=== PATIENT | male | born 1955 | race Caucasian/White ===

== ENCOUNTER → 2018-05-03 | Outpatient (CLI) | payer OTHER ==
--- NOTE | 2018-05-03 16:05 | CT ---
EXAMINATION TYPE: CT angio abdomen pelvis DATE OF EXAM: 05/03/2018 COMPARISON: NONE HISTORY: 62-year-old male AAA TECHNIQUE: Contiguous axial scanning of the abdomen and pelvis before and after administration of 100 ml Isovue-370 IV contrast. Coronal/sagittal MIP reconstructions performed. 3-D reconstructions gener ated on a dedicated independent workstation. CT DLP: 1988 mGycm Automated exposure control for dose reduction was used. FINDINGS: Heart is normal size without pericardial effusion. Coronary vessel calcifications are present and unr emarkable for coronary artery disease. Possible partially visualized distal LAD aneurysm, refer to se carr 5 image 1 measuring up to 1.2 cm. [place] areas of atelectasis in the lung bases without pleural effusion. Arterial phase imaging of the liver shows a blush of enhancement in segment 6 inferior right liver lo be probably an area of vascular shunting or flash filling hemangioma. Cholecystectomy clips. Right adrenal gland, kidneys, spleen with small hilar splenule, and pancreas show no gross abnormalit y. There is a low-density 1.2 cm left adrenal adenoma. No dilated small bowel, free fluid, or free air. No lymphadenopathy seen. Normal appendix. Scattered mild stool. No pericolonic inflammatory change. Bladder is urine distended. Pelvic phleboliths. Prostate gland measures 4.0 cm wide. No abnormal flui d collection in the pelvis or pelvic lymphadenopathy. Vasculature: Endovascular aortobiiliac stent graft repair is demonstrated which extends from just below the renal artery takeoff and below the left renal vein. The [place] measures up to 6.5 cm spanning 11.4 cm to the bifurcation. There is some acute intramu ral hematoma within the posterior aspect of the [place] measuring 3.8 x 2.8 cm and 5.1 cm cranioca udal which shows increasing density after contrast administration compatible with endoleak. A clear s ource for the endoleak is not identified. 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 Bones: No osseous destructive process. IMPRESSION: 1. ENDOVASCULAR AORTOBIILIAC STENT GRAFT REPAIR EXTENDING FROM JUST BELOW THE RENAL ARTERIES. 2. THE [place] SAC MEASURES 6.5 CM AND THE EXAM IS POSITIVE FOR ENDOLEAK WITH AN AREA OF ACUTE INTRALU ASHER HEMATOMA THAT INCREASES DENSITY AFTER CONTRAST MEASURING 3.8 X 5.1 CM IN THE POSTERIOR ASPECT O F THE [place] SAC. CORRELATE WITH PREVIOUS [place] SAC SIZE ON ANY OUTSIDE PRIORS. 3. 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 4. POSSIBLE PARTIALLY VISUALIZED 1.2 CM DISTAL LAD ANEURYSM.
== END | disposition home or self-care (01) ==
LOC: RADCTMAIN 13:28
PROVIDERS: ATTEND Physician Assistant
DX: I72.3 Aneurysm of iliac artery (principal); I97.638 Postprocedural hematoma of a circulatory system organ or structure following other circulatory system procedure
CPT/HCPCS: 74174; Q9967

== ENCOUNTER → 2018-11-29 | Outpatient (CLI) | payer OTHER ==
--- NOTE | 2018-11-29 15:02 | CT ---
EXAMINATION TYPE: CT angio abdomen pelvis DATE OF EXAM: 11/29/2018 COMPARISON: Prior CTA May 03, 2018 HISTORY: History of AAA with stent graft, evaluate for endoleak. CT DLP: 1965.3 mGycm, Automated Exposure Control for Dose Reduction was Utilized. CONTRAST: CTA scan of the abdomen and pelvis is performed without oral and without and with IV Contrast, patien t injected with 100 mL of Isovue 370. Endoleak protocol with Three-D reconstructed images created on independent workstation and reviewed FINDINGS: VASCULAR: There is redemonstration of aortobiiliac stent graft through infrarenal abdominal aortic an eurysm measuring up to 5.9 x 6.1 cm transversely axial image 44. There is patency of the celiac arter y, SMA, bilateral single renal arteries above stent graft. Post contrast images show successful opaci fication of stent graft without suspicious extraluminal opacification to suggest persistent endoleak. 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 There are patent internal/external iliac arteries extending into common as well as s uperficial and deep femoral arteries in the bilateral groin without new significant plaque or aneurys m. IVON is visualized and presumed occluded. There are new coils posterior to the aneurysm along the l eft iliopsoas muscle axial image 47 likely from occlusion of lumbar or renal feeding artery. LUNG BASES: No significant abnormality is appreciated. LIVER/GB: Cholecystectomy clips are redemonstrated. PANCREAS: No significant abnormality is seen. SPLEEN: No significant abnormality is seen. ADRENALS: Stable low dense left adrenal mass measuring 1.4 x 1.1 cm axial image 21 series 7 favoring benign lipid rich adenoma. KIDNEYS: No significant abnormality is seen. BOWEL: A few distal diverticula in the colon are redemonstrated. PROSTATE/SEMINAL VESICLES: A few scattered pelvic phleboliths are seen. LYMPH NODES: No greater than 1cm abdominal or pelvic lymph nodes are appreciated. OSSEOUS STRUCTURES: There is mild to moderate multilevel spurring in the thoracolumbar spine. OTHER: No significant additional abnormality is seen. 1. Interval successful suspected endovascular coil embolization of feeding artery posterior to endole ak. No endoleak identified currently. Patent aortobiiliac stent graft redemonstrated. [place] abdomina l aortic aneurysm measures up to 6.1 cm on current study felt slightly improved from prior study afte r treatment of endoleak. Stable 2.1 cm aneurysm distal right common iliac artery.
== END ==
LOC: RADCTMAIN 13:51
PROVIDERS: ATTEND Surgery
DX: I71.4 Abdominal aortic aneurysm, without rupture (principal); I72.8 Aneurysm of other specified arteries; T82.898A Other specified complication of vascular prosthetic devices, implants and grafts, initial encounter; Z95.828 Presence of other vascular implants and grafts
CPT/HCPCS: 74174; Q9967

== ENCOUNTER 2018-12-15 10:51 | Observation (INO) | payer OTHER ==
[2018-12-15] MEDS ORDERED: FAMOTIDINE 20 MG/2 ML VIAL IV STA (11:15)
--- NOTE | 2018-12-15 11:20 | ED ---
GI Bleed HPI - General Chief complaint: GI Bleed Stated complaint: poss GI bleed Time Seen by Provider: 12/15/18 11:06 Source: patient, RN notes reviewed Mode of arrival: ambulatory Limitations: no limitations - History of Present Illness Initial comments: This is a 63-year-old male with a history of abdominal aortic aneurysm with stent placement who is on Coumadin who states he had the onset last night of dark red blood per rectum he had another episode this morning. He states he's had some slight nausea no shortness breath chest pain no abdominal pain. No hematuria, no chest pain no cough or phlegm production no emesis. He states his normal Coumadin check his once a month usually ranges and INR from 2.1-2.9. Last check was about 3 weeks ago. No other modifying factors this time he denies any lightheadedness or dizziness MD complaint: gross hematochezia - Related Data Home Medications Medication Instructions Recorded Confirmed Aspirin 81 mg PO DAILY 12/05/15 12/15/18 Lisinopril [Zestril] 5 mg PO BID 12/05/15 12/15/18 Metoprolol Tartrate [Lopressor] 25 mg PO BID 12/05/15 12/15/18 Warfarin Sodium [Coumadin] 5 mg PO SUTUTHSA 12/15/18 12/15/18 Warfarin [Coumadin] 2.5 mg PO MOWEFR 12/15/18 12/15/18 Allergies Allergy/AdvReac Type Severity Reaction Status Date / Time No Known Allergies Allergy Verified 12/15/18 11:26 Review of Systems ROS Statement: Those systems with pertinent positive or pertinent negative responses have been documented in the HPI. ROS Other: All systems not noted in ROS Statement are negative. Past Medical History Past Medical History: Coronary Artery Disease (CAD), Hypertension Additional Past Medical History / Comment(s): aaa History of Any Multi-Drug Resistant Organisms: None Reported Past Surgical History: Cholecystectomy, Heart Catheterization With Stent Additional Past Surgical History / Comment(s): stent placed aaa Past Psychological History: No Psychological Hx Reported Smoking Status: Current every day smoker Past Alcohol Use History: None Reported Past Drug Use History: None Reported General Exam - General Exam Comments Initial Comments: This is a well-developed well-nourished awake alert oriented times 3 male Limitations: no limitations General appearance: alert, in no apparent distress Head exam: Present: atraumatic, normocephalic, normal inspection Eye exam: Present: normal appearance, PERRL, EOMI. Absent: scleral icterus, conjunctival injection, periorbital swelling ENT exam: Present: normal exam, mucous membranes moist Neck exam: Present: normal inspection. Absent: tenderness, meningismus, lymphadenopathy Respiratory exam: Present: normal lung sounds bilaterally. Absent: respiratory distress, wheezes, rales, rhonchi, stridor Cardiovascular Exam: Present: regular rate, normal rhythm, normal heart sounds. Absent: systolic murmur, diastolic murmur, rubs, gallop, clicks GI/Abdominal exam: Present: soft, normal bowel sounds. Absent: distended, tenderness, guarding, rebound, rigid Rectal exam: Present: heme (+) stool, other (Brown colored stool with some flecks of red noted was heme positive no masses patient does have hemorrhoids which are nonbleeding noninflamed) Extremities exam: Present: normal inspection, full ROM, normal capillary refill. Absent: tenderness, pedal edema, joint swelling, calf tenderness Back exam: Present: normal inspection Neurological exam: Present: alert, oriented X3, CN II-XII intact Psychiatric exam: Present: normal affect, normal mood Skin exam: Present: warm, dry, intact, normal color. Absent: rash Course Vital Signs 12/15/18 10:53 Temperature 97.8 F Pulse Rate 93 Respiratory 18 Rate Blood Pressure 176/100 O2 Sat by Pulse 98 Oximetry Medical Decision Making - Medical Decision Making I did discuss findings with the patient due to the amount of bleeding the patient did present complaining of the patient be admitted for inpatient evaluation by GI. I did discuss the case with Dr. Schroeder - Lab Data Result diagrams: 12/15/18 11:30 12/15/18 11:30 Lab Results 12/15/18 12/15/18 12/15/18 Range/Units 11:30 11:30 11:30 WBC 9.7 (3.8-10.6) k/uL RBC 4.80 (4.30-5.90) m/uL Hgb 13.7 (13.0-17.5) gm/dL Hct 42.6 (39.0-53.0) % MCV 88.7 (80.0-100.0) fL MCH 28.5 (25.0-35.0) pg MCHC 32.1 (31.0-37.0) g/dL RDW 15.0 (11.5-15.5) % Plt Count 229 (150-450) k/uL Neutrophils % 67 % Lymphocytes % 23 % Monocytes % 5 % Eosinophils % 4 % Basophils % 0 % Neutrophils # 6.5 (1.3-7.7) k/uL Lymphocytes # 2.2 (1.0-4.8) k/uL Monocytes # 0.5 (0-1.0) k/uL Eosinophils # 0.3 (0-0.7) k/uL Basophils # 0.0 (0-0.2) k/uL PT 18.2 H (9.0-12.0) sec INR 1.8 H (<1.2) APTT 31.0 H (22.0-30.0) sec Sodium (137-145) mmol/L Potassium (3.5-5.1) mmol/L Chloride (98-107) mmol/L Carbon Dioxide (22-30) mmol/L Anion Gap mmol/L BUN (9-20) mg/dL Creatinine (0.66-1.25) mg/dL Est GFR (CKD-EPI)AfAm (>60 ml/min/1.73 sqM) Est GFR (CKD-EPI)NonAf (>60 ml/min/1.73 sqM) Glucose (74-99) mg/dL Calcium (8.4-10.2) mg/dL Magnesium (1.6-2.3) mg/dL Total Bilirubin (0.2-1.3) mg/dL AST (17-59) U/L ALT (21-72) U/L Alkaline Phosphatase (38-126) U/L Total Creatine Kinase 83 (55-170) U/L CK-MB (CK-2) 0.2 (0.0-2.4) ng/mL CK-MB (CK-2) Rel Index 0.2 Troponin I <0.012 (0.000-0.034) ng/mL Total Protein (6.3-8.2) g/dL Albumin (3.5-5.0) g/dL Stool Occult Blood (Negative) Blood Type Blood Type Recheck Antibody Screen Spec Expiration Date 12/15/18 12/15/18 12/15/18 Range/Units 11:30 11:30 12:20 WBC (3.8-10.6) k/uL RBC (4.30-5.90) m/uL Hgb (13.0-17.5) gm/dL Hct (39.0-53.0) % MCV (80.0-100.0) fL MCH (25.0-35.0) pg MCHC (31.0-37.0) g/dL RDW (11.5-15.5) % Plt Count (150-450) k/uL Neutrophils % % Lymphocytes % % Monocytes % % Eosinophils % % Basophils % % Neutrophils # (1.3-7.7) k/uL Lymphocytes # (1.0-4.8) k/uL Monocytes # (0-1.0) k/uL Eosinophils # (0-0.7) k/uL Basophils # (0-0.2) k/uL PT (9.0-12.0) sec INR (<1.2) APTT (22.0-30.0) sec Sodium 140 (137-145) mmol/L Potassium 4.9 (3.5-5.1) mmol/L Chloride 108 H (98-107) mmol/L Carbon Dioxide 24 (22-30) mmol/L Anion Gap 8 mmol/L BUN 23 H (9-20) mg/dL Creatinine 0.93 (0.66-1.25) mg/dL Est GFR (CKD-EPI)AfAm >90 (>60 ml/min/1.73 sqM) Est GFR (CKD-EPI)NonAf 89 (>60 ml/min/1.73 sqM) Glucose 101 H (74-99) mg/dL Calcium 8.9 (8.4-10.2) mg/dL Magnesium 1.9 (1.6-2.3) mg/dL Total Bilirubin 0.5 (0.2-1.3) mg/dL AST 24 (17-59) U/L ALT 17 L (21-72) U/L Alkaline Phosphatase 62 (38-126) U/L Total Creatine Kinase (55-170) U/L CK-MB (CK-2) (0.0-2.4) ng/mL CK-MB (CK-2) Rel Index Troponin I (0.000-0.034) ng/mL Total Protein 7.1 (6.3-8.2) g/dL Albumin 4.3 (3.5-5.0) g/dL Stool Occult Blood Positive (Negative) Blood Type A Positive Blood Type Recheck CABO Indicated Antibody Screen NEGATIVE Spec Expiration Date 12/18/2018 - 4763 - Radiology Data Radiology results: report reviewed (Imaging shows no acute findings.), image reviewed Disposition Clinical Impression: Upper GI bleeding Disposition: ADMITTED IP TO THIS [facility] Condition: Stable Referrals: [facility],Clinic [Primary Care Provider] - 1-2 days
[2018-12-15 11:50] LABS: Basophils % (A) 0 %; Eosinophils # (A) 0.3 k/uL (0-0.7); Eosinophils % (A) 4 %; HCT 42.6 % (39.0-53.0); HGB 13.7 gm/dL (13.0-17.5); Lymphocytes # (A) 2.2 k/uL (1.0-4.8); Lymphocytes % (A) 23 %; MCH 28.5 pg (25.0-35.0); MCHC 32.1 g/dL (31.0-37.0); MCV 88.7 fL (80.0-100.0); Mean Platelet Volume 7.2; Monocytes # (A) 0.5 k/uL (0-1.0); Monocytes % (A) 5 %; Neutrophils # (A) 6.5 k/uL (1.3-7.7); Neutrophils % (A) 67 %; Platelet Count 229 k/uL (150-450); WBC 9.7 k/uL (3.8-10.6)
[2018-12-15 12:01] LABS: ALT 17 U/L (21-72); AST 24 U/L (17-59); Albumin 4.3 g/dL (3.5-5.0); Alkaline Phosphatase 62 U/L (38-126); Anion Gap 8 mmol/L; Blood Urea Nitrogen 23 mg/dL (9-20); Calcium 8.9 mg/dL (8.4-10.2); Carbon Dioxide 24 mmol/L (22-30); Chloride 108 mmol/L (98-107); Glucose 101 mg/dL (74-99); Magnesium 1.9 mg/dL (1.6-2.3); Sodium 140 mmol/L (137-145); Total Bilirubin 0.5 mg/dL (0.2-1.3); Total Protein 7.1 g/dL (6.3-8.2)
[2018-12-15 12:02] LABS: INR 1.8 (<1.2); Prothrombin Time 18.2 sec (9.0-12.0)
--- NOTE | 2018-12-15 12:05 | XR ---
EXAMINATION TYPE: XR chest 2V DATE OF EXAM: 12/15/2018 COMPARISON: 02/27/2016 HISTORY: Shortness of breath TECHNIQUE: Frontal and lateral views of the chest are obtained. FINDINGS: Scattered senescent parenchymal changes noted. Hyperinflation compatible with COPD. No evidence for infiltrate. No evidence for atelectasis. Heart size is stable. Mediastinal structures are stable and grossly unremarkable. No evidence for hilar prominence. Degenerative changes dorsal spine. IMPRESSION: 1. No evidence for acute pulmonary disease.
[2018-12-15 12:07] LABS: Potassium 4.9 mmol/L (3.5-5.1)
[2018-12-15 12:15] LABS: Creatine Kinase 83 U/L (55-170)
--- NOTE | 2018-12-15 12:15 | XR ---
Abdomen HISTORY: Pain, tarry stools, nausea Frontal view of the abdomen on 2 images No comparisons Aortic stent graft is present. Surgical clips are present in the right upper quadrant. Lung bases are clear. No pneumoperitoneum or bowel obstruction. There are cardiac leads. There are phleboliths in t he pelvis. IMPRESSION: No acute abnormalities evident.
[2018-12-15 12:28] LABS: Creatine Kinase MB 0.2 ng/mL (0.0-2.4)
[2018-12-15 12:29] LABS: Troponin I <0.012 ng/mL (0.000-0.034)
[2018-12-15] MEDS ORDERED: NALOXONE 0.4 MG/ML 1 ML VIAL IV PRN (14:40)
[2018-12-15] MEDS ORDERED: SODIUM CHLORIDE 0.9% 1,000 ML IV SCH (14:45)
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
[2018-12-15] MEDS: LISINOPRIL 5 MG TAB PO SCH (19:58)
[2018-12-15] MEDS: METOPROLOL TARTRATE 25 MG TAB PO SCH (19:58)
[2018-12-15] MEDS: PANTOPRAZOLE 40 MG/10 ML VIAL IV SCH (19:58)
[2018-12-16 07:25] VITALS: RESP 18
[2018-12-16 09:05] LABS: Basophils # (A) 0.1 k/uL (0-0.2); Basophils % (A) 1 %; Eosinophils # (A) 0.2 k/uL (0-0.7); Eosinophils % (A) 2 %; HGB 13.4 gm/dL (13.0-17.5); Lymphocytes # (A) 2.7 k/uL (1.0-4.8); Lymphocytes % (A) 30 %; MCH 29.4 pg (25.0-35.0); MCHC 32.7 g/dL (31.0-37.0); Mean Platelet Volume 6.5; Monocytes # (A) 0.5 k/uL (0-1.0); Monocytes % (A) 6 %; Neutrophils # (A) 5.2 k/uL (1.3-7.7); Neutrophils % (A) 59 %; Platelet Count 233 k/uL (150-450); RBC 4.55 m/uL (4.30-5.90); RDW 14.9 % (11.5-15.5); WBC 8.8 k/uL (3.8-10.6)
[2018-12-16 09:09] LABS: INR 1.7 (<1.2)
[2018-12-16 09:17] LABS: Anion Gap 6 mmol/L; Blood Urea Nitrogen 13 mg/dL (9-20); Calcium 8.9 mg/dL (8.4-10.2); Carbon Dioxide 25 mmol/L (22-30); Chloride 109 mmol/L (98-107); Glucose 145 mg/dL (74-99); Sodium 140 mmol/L (137-145)
[2018-12-16] MEDS: PANTOPRAZOLE 40 MG/10 ML VIAL IV SCH (09:32)
[2018-12-16] MEDS: METOPROLOL TARTRATE 25 MG TAB PO SCH (09:32)
[2018-12-16] MEDS: LISINOPRIL 5 MG TAB PO SCH (09:32)
--- NOTE | 2018-12-16 10:21 | ECHOF ---
Referral Reason:cp MEASUREMENTS -------- HEIGHT: 182.9 cm WEIGHT: 84.4 kg BP: RVIDd: 2.9 cm (< 3.3) IVSd: 1.1 cm (0.6 - 1.1) LVIDd: 4.3 cm (3.9 - 5.3) LVPWd: 1.4 cm (0.6 - 1.1) IVSs: 1.6 cm LVIDs: 4.1 cm LVPWs: 1.2 cm LAESV Index (A-L): 29.14 ml/m Ao Diam: 3.9 cm (2.0 - 3.7) AV Cusp: 2.0 cm (1.5 - 2.6) LA Diam: 3.4 cm (2.7 - 3.8) MV EXCURSION: 19.436 mm (> 18.000) MV EF SLOPE: 94 mm/s (70 - 150) EPSS: 0.6 cm MV E Eliel: 0.66 m/s MV DecT: 166 ms MV A Eliel: 0.58 m/s MV E/A Ratio: 1.15 RAP: 5.00 mmHg RVSP: 27.89 mmHg FINDINGS -------- Sinus rhythm. This was a technically adequate study. The left ventricular size is normal. There is mild concentric left ventricular hypertrophy. Overa ll left ventricular systolic function is low-normal with, an EF between 50 - 55 %. The right ventricle is normal in size. The left atrial size is normal. The right atrial size is normal. There is mild aortic valve sclerosis. There is no evidence of aortic regurgitation. Mild mitral annular calcification present. Mild mitral regurgitation is present. Mild tricuspid regurgitation present. There is no evidence of pulmonary hypertension. The right v entricular systolic pressure, as measured by Doppler, is 27.89mmHg. There is no pulmonic regurgitation present. 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 Echo free space represents a pericardial fat pad. CONCLUSIONS -------- 1. The left ventricular size is normal. 2. There is mild concentric left ventricular hypertrophy. 3. Overall left ventricular systolic function is low-normal with, an EF between 50 - 55 %. 4. The right ventricle is normal in size. 5. The left atrial size is normal. 6. The right atrial size is normal. 7. There is mild aortic valve sclerosis. 8. Mild mitral annular calcification present. 9. Mild mitral regurgitation is present. 10. Mild tricuspid regurgitation present. 11. There is no evidence of pulmonary hypertension. 12. The right ventricular systolic pressure, as measured by Doppler, is 27.89mmHg. 13. There is no pulmonic regurgitation present. 14. 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 15. Echo free space represents a pericardial fat pad. BOAT CAPTAIN: Mariam Hines RDCS
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
[2018-12-16 11:44] VITALS: BP 103/63; TEMP 97.6
[2018-12-16] MEDS ORDERED: PROPOFOL 10 MG/ML 20 ML VIAL IV ONE (15:38)
[2018-12-16] MEDS ORDERED: LIDOCAINE 1% INJ 10MG/ML (20 ML MDV) ONE (15:38)
[2018-12-16] MEDS ORDERED: IV FLUID CONTINUATION 900 ML IV ONE (15:40)
--- NOTE | 2018-12-16 16:06 | P.PCN ---
Date of Procedure: 12/16/18 Description of Procedure: BRIEF HISTORY: 63-year-old gentleman patient with a past history of LV thrombus, AAA repair with stent maintained on Coumadin, CAD, hyperlipidemia, [place], cholecystectomy presents with acute on chronic epigastric pain with 2 episodes of melena. Patient recently underwent AAA repair secondary to endoleak 2-3 weeks ago at [facility]. 2 days ago he experienced severe epigastric pain which is intermittently chronic since 2015 followed by one large episode of black colored stool. Denies hematemesis or hematochezia. No history of peptic ulcer disease EGD or colonoscopy. No NSAIDs alcohol. He takes a baby aspirin daily with his Coumadin. Admission hemoglobin 13.7 presently 13.4. INR 1.8 presently 1.7. FOBT positive. PROCEDURE PERFORMED: Esophagogastroduodenoscopy with biopsy. PREOPERATIVE DIAGNOSIS: Melena, stool positive for occult blood. ESTIMATED BLOOD LOSS: Minimal. IV sedation per anesthesia. PROCEDURE: After informed consent was obtained, the patient was brought into the endoscopy unit. IV sedation was administered by Anesthesia under continuous monitoring. Initially the Olympus GIF-190 video endoscope was inserted into the mouth. Esophagus intubated without any difficulty. It was gradually advanced into the stomach and duodenum and carefully examined. The bulb and the second part of the duodenum appeared normal. The scope at this time was withdrawn to the stomach, adequately insufflated with air, and upon careful examination, mucosa of the antrum, body, cardia and the fundus appeared grossly normal. Mild scattered erythema in the antrum and body suggestive of gastritis which was biopsied. The patient also had 2 superficial nonbleeding ulcers in the fundus of the stomach which were biopsied. The scope was then withdrawn into the esophagus. The GE junction was located at 42 cm from the incisors. The esophagus appeared normal. There were no erosions or ulcerations seen and the patient tolerated the procedure well. IMPRESSION: 1. Mild gastritis, biopsied. 2. Superficial nonbleeding gastric ulcers in the fundus, biopsied . RECOMMENDATIONS: The findings of this examination were discussed with the patient. Okay for diet. Okay to resume anticoagulation therapy. Continue Protonix daily. Patient will need to follow-up in the outpatient setting for scheduling of colonoscopy.
--- NOTE | 2018-12-16 16:47 | P.DS ---
Providers Date of admission: 12/15/18 14:41 Attending physician: Sera Schroeder Consults: 12/15/18 14:42 Consult Physician Routine Consulting Provider: Marci Patel Consult Reason/Comments: Upper GI bleed Do you want consulting provider notified?: Yes 12/15/18 16:09 Consult Physician Routine Consulting Provider: Cory Bangura Consult Reason/Comments: recommendations for anticoagulation Do you want consulting provider notified?: Yes Primary care physician: [facility] Hospital Course: 63-year-old admitted with the GI bleed believed to be upper GI bleed and patient underwent underwent upper GI endoscopy found to have couple peptic ulcers. Patient had normal bowel movement today gastroenterology evaluated the patient and they cleared him for discharge and patient will be discharged on Prilosec to home. Patient was advised to resume Coumadin as well as aspirin as per gastroenterology. Patient apparently has an left atrial apical thrombus in the left atrium for which patient is on Coumadin patient will need an INR check in about 3 days. PHYSICAL EXAMINATION: GENERAL: The patient is alert and oriented x3, not in any acute distress. Well developed, well nourished. HEENT: Pupils are round and equally reacting to light. EOMI. No scleral icterus. No conjunctival pallor. Normocephalic, atraumatic. No pharyngeal erythema. No thyromegaly. CARDIOVASCULAR: S1 and S2 present. No murmurs, rubs, or gallops. PULMONARY: Chest is clear to auscultation, no wheezing or crackles. ABDOMEN: Soft, nontender, nondistended, normoactive bowel sounds. No palpable organomegaly. MUSCULOSKELETAL: No joint swelling or deformity. EXTREMITIES: No cyanosis, clubbing, or pedal edema. NEUROLOGICAL: Gross neurological examination did not reveal any focal deficits. SKIN: No rashes. Please refer to my dictation of history of present illness from yesterday for further details of hospitalization course and chronic other medical problems Patient Condition at Discharge: Stable Plan - Discharge Summary Discharge Rx Participant: No New Discharge Prescriptions: New Omeprazole [PriLOSEC] 20 mg PO AC-BID #30 capsule. Continue Metoprolol Tartrate [Lopressor] 25 mg PO BID Aspirin 81 mg PO DAILY Warfarin [Coumadin] 2.5 mg PO MOWEFR Warfarin Sodium [Coumadin] 5 mg PO SUTUTHSA Changed Lisinopril [Zestril] 5 mg PO DAILY #0 Discharge Medication List Aspirin 81 mg PO DAILY 12/05/15 [History] Metoprolol Tartrate [Lopressor] 25 mg PO BID 12/05/15 [History] Warfarin Sodium [Coumadin] 5 mg PO SUTUTHSA 12/15/18 [History] Warfarin [Coumadin] 2.5 mg PO MOWEFR 12/15/18 [History] Lisinopril [Zestril] 5 mg PO DAILY #0 12/16/18 [Rx] Omeprazole [PriLOSEC] 20 mg PO AC-BID #30 capsule. 12/16/18 [Rx] Follow up Appointment(s)/Referral(s): [facility],Clinic [Primary Care Provider] - 1-2 days Discharge Disposition: HOME SELF-CARE
[2018-12-16 19:14] VITALS: PULSE 67
[2018-12-17] MEDS ORDERED: PANTOPRAZOLE 40 MG TABLET PO SCH (07:30)
== END 2018-12-16 19:15 | disposition home or self-care (01) ==
LOC: EC 10:51 → 1SOBS 14:41
PROVIDERS: ADMIT Internal Medicine; ATTEND Internal Medicine
DX: K29.71 Gastritis, unspecified, with bleeding (principal); K25.9 Gastric ulcer, unspecified as acute or chronic, without hemorrhage or perforation; I51.3 Intracardiac thrombosis, not elsewhere classified; I25.2 Old myocardial infarction; I25.10 Atherosclerotic heart disease of native coronary artery without angina pectoris; E78.5 Hyperlipidemia, unspecified; G89.29 Other chronic pain; I10 Essential (primary) hypertension; R79.1 Abnormal coagulation profile; F17.210 Nicotine dependence, cigarettes, uncomplicated; K21.9 Gastro-esophageal reflux disease without esophagitis; T45.515A Adverse effect of anticoagulants, initial encounter; Z95.5 Presence of coronary angioplasty implant and graft; Z79.82 Long term (current) use of aspirin; Z79.01 Long term (current) use of anticoagulants; Z90.49 Acquired absence of other specified parts of digestive tract; Z79.899 Other long term (current) drug therapy; Z86.79 Personal history of other diseases of the circulatory system; Z95.828 Presence of other vascular implants and grafts; Z80.8 Family history of malignant neoplasm of other organs or systems
CPT/HCPCS: 96375 ×2; 96374; 99285; 36415; 93306; 86900; 86901; 88305; 80053; 80048; 82550; 82553; 83735; 84484; 85025 ×2; 85610 ×2; 85730; 86850; 82272; 71046; 74018; 43239; G0378 ×2; J2001; J2704; C9113 ×2

== ENCOUNTER 2019-03-17 08:41 | Day surgery (SDC) | payer OTHER ==
[2019-03-15 11:15] VITALS: BMI 25.2
[~2019-03-17 08:41] MED LIST: LACTATED RINGERS 1,000 ML IV SCH; LIDOCAINE 1% 20 ML VIAL (10MG/ML) FOR IV START INTRADERMA PRN
[2019-03-17 09:14] VITALS: RESP 16; TEMP 97.2
[2019-03-17] MEDS ORDERED: LIDOCAINE 1% INJ 10MG/ML (20 ML MDV) ONE (09:39)
[2019-03-17] MEDS ORDERED: PROPOFOL 10 MG/ML 20 ML VIAL IV ONE (09:39)
--- NOTE | 2019-03-17 10:09 | P.PCN ---
Date of Procedure: 03/17/19 Procedure(s) Performed: Procedure: Total colonoscopy. Preoperative diagnosis: Screening for neoplasia. Postoperative diagnosis: Sigmoid diverticulosis with no evidence of acute diverticulitis, strictures, polyps or cancer. Preparation: HalfLytely prep. Sedation: Was provided by anesthesia. Brief clinical history: The patient is a 63-year-old male who is scheduled for this evaluation for screening for neoplasia age being his risk factor. The patient was hospitalized in December of this year because of epigastric pain and 2 episodes of melena and heme positive stools. An upper endoscopy showed mild gastritis and superficial nonbleeding gastric ulcers in the fundus. Biopsies showed mild chronic gastritis, negative H. pylori. The patient has history of atherosclerotic vascular disease and left ventricular thrombus and AAA repair with stent maintained on Coumadin. No bowel issues, recent overt bleeding or anemia. Procedure: With the patient on his left lateral decubitus position and after informed consent and adequate sedation, the perianal area was inspected and it did not show any fissures or fistulas. There were no masses felt on digital rectal examination. The Olympus CFH 190L video colonoscope was then inserted in the rectum in the usual fashion and advanced to the cecum. There were several diverticular orifices seen scattered in the sigmoid with no evidence of acute diverticulitis or strictures. The mucosa appeared healthy. No polyps or tumors were seen. I retroflexed the endoscope in the rectum before the endoscope was withdrawn. Low-grade internal hemorrhoids were noted with no evidence of bleeding. The patient tolerated the procedure well. Plan: The patient was reassured. Discussed dietary measures. He will follow up with you as planned and I recommended repeat exam in 10 years.
[2019-03-17 10:24] VITALS: BP 132/56; PULSE 86
== END 2019-03-17 10:53 | disposition home or self-care (01) ==
LOC: ORWHC2ENDO 08:41
DX: Z12.11 Encounter for screening for malignant neoplasm of colon (principal); K57.30 Diverticulosis of large intestine without perforation or abscess without bleeding; K64.8 Other hemorrhoids; I25.10 Atherosclerotic heart disease of native coronary artery without angina pectoris; I10 Essential (primary) hypertension; I25.2 Old myocardial infarction; E78.5 Hyperlipidemia, unspecified; I73.9 Peripheral vascular disease, unspecified; F17.200 Nicotine dependence, unspecified, uncomplicated; Z88.8 Allergy status to other drugs, medicaments and biological substances; Z95.5 Presence of coronary angioplasty implant and graft; Z86.79 Personal history of other diseases of the circulatory system; Z79.01 Long term (current) use of anticoagulants
CPT/HCPCS: J2001; J2704; G0121

== ENCOUNTER 2020-06-09 09:20 | Inpatient (IN) | payer OTHER, MEDICARE ==
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
[2020-06-09 10:06] LABS: Basophils # (A) 0.1 k/uL (0-0.2); Basophils % (A) 1 %; Eosinophils # (A) 0.3 k/uL (0-0.7); Eosinophils % (A) 4 %; HCT 41.2 % (39.0-53.0); HGB 13.3 gm/dL (13.0-17.5); Lymphocytes # (A) 2.2 k/uL (1.0-4.8); Lymphocytes % (A) 26 %; MCH 28.5 pg (25.0-35.0); MCHC 32.3 g/dL (31.0-37.0); MCV 88.3 fL (80.0-100.0); Mean Platelet Volume 7.5; Monocytes # (A) 0.4 k/uL (0-1.0); Monocytes % (A) 5 %; Neutrophils # (A) 5.3 k/uL (1.3-7.7); Neutrophils % (A) 63 %; Platelet Count 197 k/uL (150-450); RBC 4.67 m/uL (4.30-5.90); RDW 14.3 % (11.5-15.5); WBC 8.3 k/uL (3.8-10.6)
[2020-06-09 10:16] LABS: ALT 14 U/L (4-49); AST 24 U/L (17-59); African American GFR (CKD) >90 (>60 ml/min/1.73 sqM); Albumin 4.3 g/dL (3.5-5.0); Alkaline Phosphatase 68 U/L (38-126); Anion Gap 8 mmol/L; Blood Urea Nitrogen 16 mg/dL (9-20); Carbon Dioxide 24 mmol/L (22-30); Chloride 108 mmol/L (98-107); Glucose 94 mg/dL (74-99); Magnesium 1.9 mg/dL (1.6-2.3); Non-African American GFR(CKD) >90 (>60 ml/min/1.73 sqM); Sodium 140 mmol/L (137-145); Total Bilirubin 0.5 mg/dL (0.2-1.3); Total Protein 6.8 g/dL (6.3-8.2)
[2020-06-09 10:20] LABS: INR 2.3 (<1.2); Partial Thromboplastin Time 37.3 sec (22.0-30.0); Prothrombin Time 22.1 sec (9.0-12.0)
--- NOTE | 2020-06-09 10:29 | XR ---
EXAMINATION TYPE: XR chest 2V DATE OF EXAM: 06/09/2020 HISTORY: Chest Pain. REFERENCE: Previous study dated 12/15/2018. FINDINGS: There are mild senescent changes within the lungs. Heart size upper limits of normal. Pleur al spaces are clear. IMPRESSION: NO ACUTE INTRATHORACIC ABNORMALITY.
--- NOTE | 2020-06-09 12:46 | CT ---
EXAMINATION TYPE: CT angio tho/abd W Run Off DATE OF EXAM: 06/09/2020 10:38 AM COMPARISON: HISTORY: Bilateral leg weakness, numbness, and pain CT DLP: 2896.2 mGycm Automated exposure control for dose reduction was used. TECHNIQUE: Performed without and with IV Contrast, patient injected with 100 mL of Isovue 370. Reference: None. FINDINGS: The lungs are clear. There is no significant axillary, mediastinal or hilar adenopathy. There is no pleural or pericardial fluid. There is no pulmonary embolus. There is no pleural or pericardial fluid. The heart is not enlarged. The aortic root is upper limits of normal in size. The remainder of the aorta is normal until the inf rarenal abdominal aorta where there is an aortic iliac stent in place. Maximal transverse diameter of the aneurysm is 5.7 cm. There is a small endoleak near the origin of the graft. Both internal/c python developer al iliac vessels are patent. The deep femoral arteries are patent. The superficial femoral arteries a re patent. Both popliteal arteries are patent. There is three-vessel runoff bilaterally on the right there is three-vessel runoff to the ankle. On the left there is three-vessel runoff to the ankle. Within the abdomen, the gallbladder is been removed. The liver and spleen appear normal. Both adrenal glands appear normal. Both kidneys demonstrate function and appear morphologically normal. The pancreas is unremarkable. There is no significant retroperitoneal, iliac or inguinal adenopathy. The bladder is normal. There is no significant diverticular change and there is no radiographic evidence of diverticulitis. The appendix is normal. Small bowel loops are normal in caliber. There is no free fluid and no free air. There is minimal hypertrophic spondylosis within the spine. IMPRESSION: 1. AORTOILIAC STENT GRAFT WHICH IS PATENT. THERE IS A SMALL ENDOLEAK AT THE PROXIMAL PORTION OF THE G RAFT. 2. MINIMAL DEGENERATIVE CHANGES WITHIN THE SPINE.
[2020-06-09] MEDS ORDERED: SODIUM CHLORIDE 0.9% 1,000 ML IV ONE (13:46)
--- NOTE | 2020-06-09 15:46 | CT ---
EXAMINATION TYPE: CT brain wo con DATE OF EXAM: 06/09/2020 COMPARISON: None HISTORY: Leg weakness CT DLP: 1147.4 mGycm Automated exposure control for dose reduction was used. Images were obtained of the brain without contrast. Ventricles and sulci appear normal. There is no mass effect nor midline shift. There is no sign of in tracranial hemorrhage. The calvarium is intact. Skull base is intact. IMPRESSION: Negative unenhanced head CT scan.
[2020-06-09] MEDS ORDERED: HYDROmorphone 0.5 MG/0.5 ML SYRINGE IVP PRN (17:32)
[2020-06-09] MEDS ORDERED: ALPRAZolam 0.25 MG TAB PO PRN (17:32)
[2020-06-09] MEDS ORDERED: ACETAMINOPHEN TAB 500 MG TAB PO PRN (17:32)
[2020-06-09] MEDS ORDERED: HYDROcodone/APAP 5-325MG 1 EACH TAB PO PRN (17:32)
[2020-06-09] MEDS ORDERED: TEMAZEPAM 15 MG CAP PO PRN (17:32)
--- NOTE | 2020-06-09 18:26 | HP ---
HISTORY AND PHYSICAL DATE OF SERVICE: 06/09/2020 CHIEF COMPLAINTS: Leg numbness, weakness and back pain. HISTORY OF PRESENT ILLNESS: This 65-year-old gentleman with a past medical history of CAD, hypertension, hyperlipidemia, myocardial infarction, history of head injury, history of cholecystectomy, history of CAD/stent being followed by [facility] and Dr. Huerta in the outpatient setting apparently had previous abdominal aortic stent in 2012 and 2017 patient developed a leak and was repaired by Dr. Guy. Currently the patient woke up this morning and has noted some weakness in the legs and also had some back pain. The weakness improved and the patient is able to walk and the patient came to [facility] and was admitted for further evaluation and treatment. A CT scan of the abdomen and pelvis showed some endoleak and Dr. Guy was contacted immediately by the ER physician and recommended observe the patient. At this time, the patient is being admitted for further evaluation and treatment. The patient is comfortable currently. The patient is able to move the legs and there is no apparent weakness has been noted. Neurology evaluation in progress and stroke code has also been recommended. The patient also had a CT scan of the brain which is negative at this time. There is no history of fever, rigors. No history of headache, loss of consciousness, seizures. PAST MEDICAL HISTORY: Abdominal aortic aneurysm repair with stents, CAD, myocardial infarction, history of head injury, history of CAD/stent. MEDICATIONS: Prior to admission: 1. Lopressor 25 mg p.o. b.i.d. 2. Zestril 5 mg daily. 3. Coumadin 2.5 mg Thursday, Thursday, Thursday and 5 mg Thursday, Thursday, , Thursday. 4. Aspirin 81 mg daily. ALLERGIES: STATINS. FAMILY HISTORY: History of hypertension. SOCIAL HISTORY: history of smoking. No history of alcohol intake. REVIEW OF SYSTEMS: ENT: No diminished vision. No diminished hearing. CARDIOVASCULAR: No angina or palpitations. RESPIRATIONS: No cough. No hemoptysis. GI as mentioned earlier. : No dysuria. NERVOUS SYSTEM: As mentioned earlier. ALLERGIES/IMMUNOLOGY: No asthma or hayfever. MUSCULOSKELETAL as mentioned earlier. HEMATOLOGY/ONCOLOGY: No history of anemia. ENDOCRINE: No history of diabetes or hypothyroidism. CONSTITUTIONAL: As mentioned earlier. DERMATOLOGY: Negative. RHEUMATOLOGY negative. PSYCHIATRY as mentioned earlier. PHYSICAL EXAMINATION: Patient is alert, oriented x3. The pulse is 75. Blood pressure 142/70, respirations 16, temperature 97.8, pulse ox 98% on room air. HEENT: Conjunctivae normal. Oral mucosa moist. NECK is no jugular venous distention. No carotid bruit. No lymph node enlargement. CARDIOVASCULAR: S1, S2. RESPIRATION: Breath sounds diminished in the bases. No rhonchi. No crackles. ABDOMEN: Soft, nontender. No mass palpable. LEGS no edema. No swelling. Pulses felt normally. NERVOUS SYSTEM: Higher functions as mentioned earlier. Moves all 4 limbs. No focal motor or sensory deficits. The power is normal in all 4 limbs including the legs. Gait is normal. SKIN: No ulcers, rashes or bleeding. JOINTS: No active deforming arthropathy. LYMPHATICS: No lymph nodes palpable in the neck, axillae or groin. LABS: CBC within normals. INR 2.3. Sodium 140. Potassium 4. ASSESSMENT: 1. Back pain and endovascular leak of the abdominal aneurysm repair graft. 2. Lower limb weakness, transient, improved. 3. Coumadin monitoring. 4. History of abdominal aortic aneurysm repair. 5. History of coronary artery disease. 6. Hypertension. 7. Hyperlipidemia. 8. History of previous endo leak. 9. History of head injury. 10.History of corneal abrasion. 11.History of cholecystectomy. 12.History of coronary artery disease/stent. 13.History of nicotine dependence. RECOMMENDATIONS AND DISCUSSION: This 65-year-old gentleman who presented with multiple complex medical issues, we will monitor the patient closely, continue the current medications, management and symptomatic treatment. We will resume the home medications. Hold the Coumadin for now. Otherwise, we will monitor the PT/INR closely and I would also recommend Cardiology evaluation as well. Dr. Guy is following the patient closely. Resume the rest of medications. Avoid antiplatelet agents for now and further recommendations to follow. A copy of this being forwarded to [facility] who is the primary physician. MMODL / IJN: [id number] /
[2020-06-10] MEDS: PANTOPRAZOLE 40 MG TABLET PO SCH (05:20)
--- NOTE | 2020-06-10 07:22 | P.PN ---
Progress Note - Text Progress Note Date: 06/09/20 Called to review the CTA performed in the ER. There is a small type I endoleak which will need repair in the near future but is unlikely causing the bilateral lower extremity weakness and instability that the patient is complaining of. The rest of the vascular flow to the lower extremities is brisk and patient has good runoff. I agree with monitoring him over the weekend and possible neuro eval for his lower extremity complaints.
[2020-06-10 08:36] LABS: Basophils % (A) 0 %; Eosinophils # (A) 0.2 k/uL (0-0.7); Eosinophils % (A) 2 %; HCT 39.2 % (39.0-53.0); HGB 12.7 gm/dL (13.0-17.5); Lymphocytes # (A) 1.8 k/uL (1.0-4.8); Lymphocytes % (A) 19 %; MCH 28.7 pg (25.0-35.0); MCHC 32.3 g/dL (31.0-37.0); MCV 88.8 fL (80.0-100.0); Mean Platelet Volume 7.9; Monocytes # (A) 0.5 k/uL (0-1.0); Monocytes % (A) 5 %; Neutrophils # (A) 6.6 k/uL (1.3-7.7); Neutrophils % (A) 72 %; Platelet Count 176 k/uL (150-450); RBC 4.41 m/uL (4.30-5.90); RDW 14.1 % (11.5-15.5); WBC 9.2 k/uL (3.8-10.6)
[2020-06-10] MEDS: lisinopriL 5 MG TAB PO SCH (08:36)
[2020-06-10] MEDS: METOPROLOL TARTRATE 25 MG TAB PO SCH (08:36)
[2020-06-10 08:53] LABS: African American GFR (CKD) >90 (>60 ml/min/1.73 sqM); Anion Gap 4 mmol/L; Blood Urea Nitrogen 11 mg/dL (9-20); Calcium 8.2 mg/dL (8.4-10.2); Carbon Dioxide 24 mmol/L (22-30); Chloride 109 mmol/L (98-107); Glucose 132 mg/dL (74-99); Non-African American GFR(CKD) >90 (>60 ml/min/1.73 sqM); Potassium 4.1 mmol/L (3.5-5.1); Sodium 137 mmol/L (137-145)
[2020-06-10 11:13] LABS: Prothrombin Time 19.2 sec (9.0-12.0)
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
--- NOTE | 2020-06-10 15:18 | PN ---
PROGRESS NOTE DATE OF SERVICE: 06/10/2020 This 65-year-old gentleman who was admitted with leg numbness and weakness and also had back pain. Patient was suspected to have endoleak, which most likely will be managed by Dr. Guy during the present admission. Please note the patient also had previous endoleak which was also treated previously. Currently, the patient had significant improvement in the back pain and the patient is also able to ambulate. Neurology evaluation is in progress. Spinal cord ischemia is also being considered. Cardiology following the patient closely. PAST MEDICAL HISTORY: Reviewed. REVIEW OF SYSTEMS: Cardiovascular system: As mentioned earlier. RESPIRATORY: As mentioned earlier. GI no nausea. no dysuria. NERVOUS SYSTEM: As mentioned earlier. CURRENT MEDICATIONS: Reviewed and include: 1. Tylenol p.r.n. 2. [place]. 3. Xanax. 4. Dilaudid. 5. Zestril. 6. Lopressor. 7. Protonix. 8. Restoril. PHYSICAL EXAM: Patient is alert and oriented times three. Pulse 70. Blood pressure 120/58, respirations 16, temperature 98.2, pulse ox 94% on room air. HEENT: Conjunctivae normal. Oral mucosa moist. NECK is no jugular venous distention. No carotid bruit. No lymph node enlargement. CARDIOVASCULAR: S1, S2 muffled. RESPIRATORY: Breath sounds diminished in the bases. No rhonchi. No crackles. ABDOMEN: Soft, nontender. No mass palpable. LEGS no edema. No swelling. NERVOUS SYSTEM: No focal deficits. LABS: Labs are WBC 9.2, hemoglobin 12.7, INR 2, calcium 8.2. ASSESSMENT: 1. Back pain. 2. Endovascular leak of the abdominal aneurysm repair graft. 3. Lower limb weakness, transient, improved, rule out possible spinal cord ischemia, transient. 4. Coumadin monitoring. 5. History of abdominal aortic aneurysm repair. 6. History of coronary artery disease. 7. Hypertension. 8. Hyperlipidemia. 9. History of previous Endo leak. 10.History of head injury. 11.History of corneal abrasion. 12.History of cholecystectomy. 13.History of coronary artery disease/stent. 14.History of nicotine dependence. RECOMMENDATIONS AND DISCUSSION: Recommend to continue current medications, symptomatic treatment. Otherwise, hold Coumadin today. Follow closely with vascular surgery, Dr. Guy for definitive treatment for endoleak and neurology evaluation. Follow closely with cardiology. Prognosis guarded. Further recommendations to follow. MMODL / IJN: [id number] /
--- NOTE | 2020-06-10 16:40 | CT ---
EXAMINATION TYPE: CT lumbar spine wo con DATE OF EXAM: 06/10/2020 COMPARISON: None HISTORY: Bilateral lower leg weakness and numbness. CT DLP: 1297.4 mGycm Automated exposure control for dose reduction was used. Multiple axial sections were obtained from T12 to S2 vertebra without contrast. Lumbar vertebra have normal alignment. Disc spaces are fairly normal. There is no compression fractur e. There is aorto iliac stent noted. There is 6.3 cm aneurysm of the lower abdominal aorta. The poste rior elements are intact. There is developmentally adequate spinal canal. There is no spinal stenosis . Sacroiliac joints are intact. There is no lumbar paraspinal mass. Appendix appears normal. IMPRESSION: Minor degenerative spurring in the lumbar spine. No fracture. Normal disc spaces. Large aneurysm of the abdominal aorta.
--- NOTE | 2020-06-10 16:49 | CT ---
EXAMINATION TYPE: CT abdomen pelvis wo con DATE OF EXAM: 06/10/2020 COMPARISON: 11/29/2018 and 06/09/2020 HISTORY: Bilateral lower leg weakness and numbness. CT DLP: 1297.4 mGycm Automated exposure control for dose reduction was used. Images obtained from the diaphragm to the floor the pelvis without contrast. There is some patchy atelectasis and interstitial infiltrate at the lung bases. Heart appears normal. There are clips from cholecystectomy. Liver and spleen appear normal. The bile ducts are not dilated . There is no evidence of pancreatic mass. The stomach is intact. There is 2 cm low-density left adrenal mass unchanged. Kidneys have normal size. There is no hydronephrosis. Ureters are not dilated. There is aorto iliac e ndograft. There is large aneurysm of the lower abdominal aorta that measures up to 6.4 cm. There is n o retroperitoneal adenopathy. Bladder distends smoothly. There is no inguinal hernia. There is no aaron e fluid in the pelvis. There is no mesenteric edema. There is no ascites or free air. Appendix is medial and appears normal. Lumbar vertebra have normal spacing and alignment. There is no compression fracture. Bony pelvis is i ntact. Exam limited slightly by motion in the lower pelvis. IMPRESSION: No sign of acute abdomen and pelvis. Interstitial infiltrates and atelectasis at the lung bases is ne w compared to exam yesterday. No pleural fluid. Large abdominal aortic aneurysm unchanged compared to 11/29/2018.
[2020-06-11 01:57] VITALS: RESP 18
[2020-06-11] MEDS: PANTOPRAZOLE 40 MG TABLET PO SCH (06:46)
[2020-06-11 07:38] LABS: Basophils % (A) 0 %; Eosinophils # (A) 0.2 k/uL (0-0.7); Eosinophils % (A) 2 %; HCT 38.5 % (39.0-53.0); HGB 12.4 gm/dL (13.0-17.5); Lymphocytes # (A) 1.9 k/uL (1.0-4.8); Lymphocytes % (A) 23 %; MCH 28.7 pg (25.0-35.0); MCHC 32.2 g/dL (31.0-37.0); MCV 89.1 fL (80.0-100.0); Mean Platelet Volume 7.9; Monocytes # (A) 0.6 k/uL (0-1.0); Monocytes % (A) 7 %; Neutrophils # (A) 5.3 k/uL (1.3-7.7); Neutrophils % (A) 65 %; Platelet Count 159 k/uL (150-450); RBC 4.32 m/uL (4.30-5.90); RDW 14.2 % (11.5-15.5); WBC 8.1 k/uL (3.8-10.6)
[2020-06-11 07:44] LABS: INR 1.5 (<1.2); Prothrombin Time 15.3 sec (9.0-12.0)
[2020-06-11 07:55] LABS: African American GFR (CKD) >90 (>60 ml/min/1.73 sqM); Anion Gap 4 mmol/L; Blood Urea Nitrogen 10 mg/dL (9-20); Calcium 8.3 mg/dL (8.4-10.2); Carbon Dioxide 27 mmol/L (22-30); Chloride 108 mmol/L (98-107); Glucose 89 mg/dL (74-99); Non-African American GFR(CKD) >90 (>60 ml/min/1.73 sqM); Potassium 4.3 mmol/L (3.5-5.1); Sodium 139 mmol/L (137-145)
[2020-06-11] MEDS: METOPROLOL TARTRATE 25 MG TAB PO SCH (08:23)
[2020-06-11] MEDS: lisinopriL 5 MG TAB PO SCH (08:23)
--- NOTE | 2020-06-11 10:39 | P.PN ---
Subjective Progress Note Date: 06/11/20 Principal diagnosis: Coronary artery disease This is a 64-year-old gentleman was coronary artery disease as well as hypertension and dyslipidemia who was admitted to the hospital with symptoms of bilateral lower extent is numbness. He was diagnosed with type II endoleak and he was seen by a vascular surgeon who is planning to undergo surgery on him in the next few weeks. He was seen today. He's a symptomatic from a perivascular standpoint overview. No chest pain or chest discomfort or shortness of breath. Objective - Vital Signs Vital signs: Vital Signs Temp 98.1 F 06/11/20 04:00 Pulse 72 06/11/20 04:00 Resp 18 06/11/20 04:00 BP 101/65 06/11/20 04:00 Pulse Ox 94 L 06/11/20 04:00 Intake & Output 06/10/20 06/11/20 06/11/20 18:59 06:59 18:59 Intake Total 660 240 Balance 660 240 Weight 86.1 kg Intake: Oral 660 240 Other: Voiding Method Toilet # Voids 1 - Constitutional General appearance: Present: no acute distress - Respiratory Respiratory: bilateral: CTA - Cardiovascular Rhythm: regular Heart sounds: normal: S1, S2 - Labs CBC & Chem 7: 06/11/20 06:58 06/11/20 06:58 Labs: Abnormal Lab Results - Last 24 Hours (Table) 06/10/20 06/11/20 06/11/20 Range/Units 10:38 06:58 06:58 Hgb 12.4 L (13.0-17.5) gm/dL Hct 38.5 L (39.0-53.0) % PT 19.2 H (9.0-12.0) sec INR 2.0 H (<1.2) Chloride 108 H (98-107) mmol/L Calcium 8.3 L (8.4-10.2) mg/dL 06/11/20 Range/Units 06:58 Hgb (13.0-17.5) gm/dL Hct (39.0-53.0) % PT 15.3 H (9.0-12.0) sec INR 1.5 H (<1.2) Chloride (98-107) mmol/L Calcium (8.4-10.2) mg/dL Assessment and Plan Assessment: Assessment #1 coronary artery disease seems to be stable #2 peripheral arterial disease and status post aortic stent graft #3 multiple comorbid conditions Plan #1 continue the current medical regimen #2 the patient can be discharged home
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
--- NOTE | 2020-06-11 11:18 | XR ---
EXAMINATION TYPE: XR chest 1V portable DATE OF EXAM: 06/11/2020 COMPARISON: 06/09/2020 HISTORY: Shortness of breath TECHNIQUE: Single frontal view of the chest is obtained. FINDINGS: Rounded nodule in the left retrocardiac region suggestive of granuloma. Subsegmental mcmillan es at both lung bases. Diffuse osteopenia and arthropathy of the shoulders. Biapical pleural thickeni ng. Heart size normal. No overt failure or pneumothorax. IMPRESSION: Basilar atelectasis favored over pneumonia.
--- NOTE | 2020-06-11 12:40 | P.PN ---
Subjective Progress Note Date: 06/11/20 She was seen and examined at the bedside. Patient is without any complaints. He states his bilateral lower extremity weakness has improved. He denies any focal deficits. He had no acute changes through the night. He denies any chest pain abdominal pain or back pain. He states he would like to go home and have the procedure outpatient if it is likely to be able to be done tomorrow. Awaiting further recommendations and review of CT angiogram with endovascular graft technology sales representative. A disc copy of the CT angiogram has been requested. Objective - Vital Signs Vital signs: Vital Signs Temp 98.1 F 06/11/20 04:00 Pulse 69 06/11/20 08:00 Resp 18 06/11/20 08:00 BP 112/69 06/11/20 08:00 Pulse Ox 93 L 06/11/20 08:00 Intake & Output 06/10/20 06/11/20 06/11/20 18:59 06:59 18:59 Intake Total 660 240 Balance 660 240 Weight 86.1 kg Intake: Oral 660 240 Other: Voiding Method Toilet Toilet # Voids 1 1 - Exam General appearance: The patient is alert, oriented, in no acute distress. HET: Head is normocephalic and atraumatic. Pupils are equal and reactive. Neck: Supple without lymphadenopathy. Trachea midline. Heart: S1 S2. Regular rate and rhythm. Lungs: No crackles or wheezes are heard. Abdomen: Soft, nontender, nondistended with bowel sounds. Extremities: Normal skin color and turgor. No cyanosis, rash, ulceration, clubbing, or edema. Radial and pedal pulses are 2/4 bilaterally. Neurological: No focal deficits. Strength and sensation are grossly intact. - Labs CBC & Chem 7: 06/11/20 06:58 06/11/20 06:58 Labs: Abnormal Lab Results - Last 24 Hours (Table) 06/11/20 06/11/20 06/11/20 Range/Units 06:58 06:58 06:58 Hgb 12.4 L (13.0-17.5) gm/dL Hct 38.5 L (39.0-53.0) % PT 15.3 H (9.0-12.0) sec INR 1.5 H (<1.2) Chloride 108 H (98-107) mmol/L Calcium 8.3 L (8.4-10.2) mg/dL Assessment and Plan Assessment: Assessment and Plan Assessment: #1 AAA with history of endovascular aortic repair with possible type IA endoleak #2 bilateral lower extremity weakness possible secondary to transient spinal cord ischemia versus other neurologic etiology #3 coronary artery disease with history of coronary stenting Plan: We'll review CT angiogram with the endovascular graft representatives for planning of endovascular repair of type IA endoleak. We can perform this within the next 1-2 weeks as outpatient, and possibly as early as Thursday. Further recommendations to follow review of the CT angiogram and discussion with endovascular graft technology sales representative. Continue to hold Coumadin for possible surgical intervention tomorrow. The above dictated assessment and findings were discussed with Dr. Guy. The impression and plan of care have been directed as dictated.
--- NOTE | 2020-06-11 15:17 | P.PN ---
Subjective Progress Note Date: 06/11/20 Principal diagnosis: This is a 65-year-old male who was recently admitted with leg numbness and weakness and also back pain and is being closely monitored. Patient suspected to have an endoleak and cardiovascular surgery following closely. Patient has a history of a previous endoleak which was treated previously. Patient is currently maintained on Coumadin which is on hold for the possibility of cardiovascular intervention tomorrow. Neurology consulted and pending at this time. Patient's chest x-ray today shows basilar atelectasis with a rounded nodule in the left retrocardiac region suggestive of a granuloma, and no overt failure or pneumothorax noted. BNP was done today showing 215. Current INR is 1.5. Patient's Coumadin is on hold. Patient currently awaiting to have an MRI of the T and L-spine sometime today. Patient would really like to go home today although strongly recommending to have the MRI done. Will continue to monitor closely. Review of systems: Constitutional: No reports of fatigue, fevers, or chills Cardiovascular: No reports of chest pain or palpitations Respiratory: No reports of shortness of breath or cough GI: No reports of nausea, vomiting, or diarrhea : No reports of dysuria or retention Neurovascular: No reports of weakness or numbness Active Medications Acetaminophen (Tylenol Tab) 500 mg PO Q6HR PRN PRN Reason: Fever and/ or Pain Hydrocodone Bitart/Acetaminophen ([place] 5-325) 1 each PO Q6HR PRN PRN Reason: Pain Alprazolam (Xanax) 0.25 mg PO TID PRN PRN Reason: Anxiety Hydromorphone HCl (Dilaudid) 0.5 mg IVP Q6HR PRN PRN Reason: Severe Pain Lisinopril (Zestril) 5 mg PO DAILY [facility] Last Admin: 06/11/20 08:23 Dose: 5 mg Documented by: Metoprolol Tartrate (Lopressor) 25 mg PO DAILY [facility] Last Admin: 06/11/20 08:23 Dose: 25 mg Documented by: Pantoprazole Sodium (Protonix) 40 mg PO AC-BRKFST [facility] Last Admin: 06/11/20 06:46 Dose: Not Given Documented by: Temazepam (Restoril) 15 mg PO HS PRN PRN Reason: Insomnia Objective - Vital Signs Vital signs: Vital Signs Temp 98.1 F 06/11/20 04:00 Pulse 69 06/11/20 08:00 Resp 18 06/11/20 08:00 BP 112/69 06/11/20 08:00 Pulse Ox 93 L 06/11/20 08:00 Intake & Output 06/10/20 06/11/20 06/11/20 18:59 06:59 18:59 Intake Total 660 480 Balance 660 480 Weight 86.1 kg Intake: Oral 660 480 Other: Voiding Method Toilet Toilet # Voids 1 1 - Exam Gen: This is a 65-year-old male sitting up in bed, awake, alert and oriented 3, well-developed, well-nourished. Temp is 98.1F, pulse is 69, respirations are 18, blood pressures 112/69, oxygen saturation is 93% on room air. HEENT: Head is atraumatic, normocephalic. Pupils equal, round. Sclerae is anicteric. NECK: Supple. No JVD. No lymphadenopathy. No thyromegaly. LUNGS: Diminished breath sounds bilaterally with no wheezing or rhonchi noted. No intercostal retractions. HEART: S1, S2 are muffled ABDOMEN: Soft. Bowel sounds are present. No masses. No tenderness. EXTREMITIES: No pedal edema. No calf tenderness. NEUROLOGICAL: Patient is awake, alert and oriented x3. Cranial nerves 2 through 12 are grossly intact. - Labs CBC & Chem 7: 06/11/20 06:58 06/11/20 06:58 Labs: Abnormal Lab Results - Last 24 Hours (Table) 06/11/20 06/11/20 06/11/20 Range/Units 06:58 06:58 06:58 Hgb 12.4 L (13.0-17.5) gm/dL Hct 38.5 L (39.0-53.0) % PT 15.3 H (9.0-12.0) sec INR 1.5 H (<1.2) Chloride 108 H (98-107) mmol/L Calcium 8.3 L (8.4-10.2) mg/dL Assessment and Plan Assessment: Back pain Endovascular leak of the abdominal aneurysm repair graft Lower limb weakness, transient, improved, rule out possible spinal cord ischemia, transient Coumadin monitoring History of abdominal aortic aneurysm repair History of coronary artery disease Hypertension Hyperlipidemia History of previous endoleak History of head injury History of corneal abrasion History of cholecystectomy History of coronary artery disease, stent history of nicotine dependence Recommendations and discussion: Recommend continue current medications, management, and symptomatic treatment. Neurology evaluating the patient. Awaiting MRI of the L and T-spine. Cardiovascular surgery also following and Coumadin currently is on hold for possible cardiovascular intervention of an endoleak. Will await MRI report. Due to multiple complex medical issues, prognosis is guarded. Further recom mendations to follow.
[2020-06-12 02:47] VITALS: TEMP 98.1
[2020-06-12 06:11] LABS: Basophils % (A) 1 %; Eosinophils # (A) 0.2 k/uL (0-0.7); Eosinophils % (A) 2 %; HCT 40.7 % (39.0-53.0); HGB 12.6 gm/dL (13.0-17.5); Lymphocytes # (A) 2.2 k/uL (1.0-4.8); Lymphocytes % (A) 25 %; MCH 27.9 pg (25.0-35.0); MCV 89.9 fL (80.0-100.0); Mean Platelet Volume 7.9; Monocytes # (A) 0.5 k/uL (0-1.0); Monocytes % (A) 6 %; Neutrophils # (A) 5.7 k/uL (1.3-7.7); Neutrophils % (A) 65 %; Platelet Count 180 k/uL (150-450); RBC 4.52 m/uL (4.30-5.90); RDW 14.2 % (11.5-15.5); WBC 8.8 k/uL (3.8-10.6)
[2020-06-12] MEDS: PANTOPRAZOLE 40 MG TABLET PO SCH (06:17)
[2020-06-12 06:20] LABS: INR 1.3 (<1.2); Prothrombin Time 13.2 sec (9.0-12.0)
[2020-06-12 06:26] LABS: African American GFR (CKD) >90 (>60 ml/min/1.73 sqM); Anion Gap 3 mmol/L; Blood Urea Nitrogen 14 mg/dL (9-20); Calcium 8.7 mg/dL (8.4-10.2); Carbon Dioxide 28 mmol/L (22-30); Chloride 108 mmol/L (98-107); Glucose 86 mg/dL (74-99); Non-African American GFR(CKD) >90 (>60 ml/min/1.73 sqM); Potassium 4.3 mmol/L (3.5-5.1); Sodium 139 mmol/L (137-145)
[2020-06-12] MEDS: lisinopriL 5 MG TAB PO SCH (10:46)
[2020-06-12] MEDS: METOPROLOL TARTRATE 25 MG TAB PO SCH (10:46)
--- NOTE | 2020-06-12 11:11 | MR ---
EXAMINATION TYPE: MR schroeder wo/w con DATE OF EXAM: 06/12/2020 COMPARISON: None HISTORY: leg pain and weakness CONTRAST: Performed utilizing 7.5 mL intravenous Gadavist gadolinium contrast. TECHNIQUE: Multiplanar, multiecho imaging on a 3.0 Luz magnet is performed through the thoracic spi ne. Spinal cord maintains normal signal through its visualized course. Vertebral body alignment is normal. Vertebral body heights are preserved. Disc heights are preserved. Disc hydration levels are preserved. No spinal canal stenosis is evident. Note is made of some disc bulging C5-C6 and to a lesser degree C6-7 on sagittal plane images. IMPRESSIONS: 1. Normal MRI thoracic spine. 2. Note is made of some disc bulges C5-6 and to a lesser degree C6-7. EXAMINATION TYPE: MR emery/marine wo/w con DATE OF EXAM: 06/12/2020 COMPARISON: 06/10/2020 CT lumbar spine HISTORY: leg pain and weakness CONTRAST: 7.5 mL intravenous Gadavist. TECHNIQUE: Multiplanar, multisequence images of the lumbar spine were acquired. FINDINGS: L5-S1: No significant disc bulge or disc herniation. No spinal canal stenosis. No foraminal stenosi s. Neural foramen are patent.. L4-L5: No significant disc bulge or disc herniation. No spinal canal stenosis. Facet hypertrophy is present with some mild ligamentum flavum laxity. No significant posterior lateral thecal sac compress ion is evident. There is some mild foraminal narrowing.. L3-L4: No significant disc bulge or disc herniation. No spinal canal stenosis. No foraminal stenosi s. Mild facet hypertrophy is present.. L2-L3: No significant disc bulge or disc herniation. No spinal canal stenosis. No foraminal stenosi s. There is mild facet hypertrophy present with ligamentum flavum laxity. This has posterior lateral thecal sac impression.. L1-L2: No significant disc bulge or disc herniation. No spinal canal stenosis. No foraminal stenosi s. T12-L1: No significant disc bulge or disc herniation. No spinal canal stenosis. No foraminal stenos is. Minimal facet hypertrophy may be present.. No abnormal enhancement. Note is made of an abdominal aortic aneurysm which appears to have stent anthony cement. IMPRESSION: 1. Mild facet degenerative changes with some ligamentum flavum laxity discussed above. 2. Some mild foraminal narrowing may be present L4-5. 3. Abdominal aortic aneurysm with stent placement.
--- NOTE | 2020-06-12 11:28 | P.PN ---
Subjective Progress Note Date: 06/12/20 Principal diagnosis: Coronary artery disease This is a 64-year-old gentleman was coronary artery disease as well as hypertension and dyslipidemia who was admitted to the hospital with symptoms of bilateral lower extent is numbness. He was diagnosed with type II endoleak and he was seen by a vascular surgeon who is planning to undergo surgery on him in the next few weeks. The patient was seen today, 06/12/2020. He is asymptomatic from a cardiovascular standpoint of view. He denies any chest pain or chest discomfort or shortness of breath. From the cardiovascular standpoint the patient can be discharged home Objective - Vital Signs Vital signs: Vital Signs Temp 98.1 F 06/12/20 00:00 Pulse 75 06/12/20 04:00 Resp 18 06/12/20 04:00 BP 112/74 06/12/20 04:00 Pulse Ox 97 06/12/20 04:00 Intake & Output 06/11/20 06/12/20 06/12/20 18:59 06:59 18:59 Intake Total 840 240 Balance 840 240 Weight 85.9 kg Intake: Oral 840 240 Other: Voiding Method Toilet Toilet # Voids 1 2 - Constitutional General appearance: Present: no acute distress - Respiratory Respiratory: bilateral: CTA - Cardiovascular Rhythm: regular Heart sounds: normal: S1, S2 - Labs CBC & Chem 7: 06/12/20 05:21 06/12/20 05:21 Labs: Abnormal Lab Results - Last 24 Hours (Table) 06/12/20 06/12/20 06/12/20 Range/Units 05:21 05:21 05:21 Hgb 12.6 L (13.0-17.5) gm/dL PT 13.2 H (9.0-12.0) sec INR 1.3 H (<1.2) Chloride 108 H (98-107) mmol/L Assessment and Plan Assessment: Assessment #1 coronary artery disease seems to be stable #2 peripheral arterial disease and status post aortic stent graft #3 multiple comorbid conditions Plan #1 continue the current medical regimen #2 the patient can be discharged home
--- NOTE | 2020-06-12 11:44 | P.PN ---
Subjective Progress Note Date: 06/12/20 Patient seen and examined lying in bed. Patient denies any chest pain, shortness of breath, abdominal pain or back pain. He states bilateral lower extremity weakness has improved. He denies any other focal deficits. Denies any acute changes through the night. The patient has a history of an abdominal aortic aneurysm and an EVAR 2013 with a type II endoleak repair in 2018 with a possible type IA endoleak currently. The plan is for the patient to be discharged home today, to return for outpatient endoleak repair.. MRI was completed this morning, results are still pending. Objective - Vital Signs Vital signs: Vital Signs Temp 98.1 F 06/12/20 00:00 Pulse 75 06/12/20 04:00 Resp 18 06/12/20 04:00 BP 112/74 06/12/20 04:00 Pulse Ox 97 06/12/20 04:00 Intake & Output 06/11/20 06/12/20 06/12/20 18:59 06:59 18:59 Intake Total 840 240 Balance 840 240 Weight 85.9 kg Intake: Oral 840 240 Other: Voiding Method Toilet Toilet # Voids 1 2 - Exam General appearance: The patient is alert, oriented, in no acute distress. HET: Head is normocephalic and atraumatic. Pupils are equal and reactive. Neck: Supple without lymphadenopathy. Trachea midline. Heart: S1 S2. Regular rate and rhythm. Lungs: No crackles or wheezes are heard. Abdomen: Soft, nontender, nondistended with bowel sounds. Extremities: Normal skin color and turgor. No cyanosis, rash, ulceration, clubbing, or edema. Radial and pedal pulses are 2/4 bilaterally. Neurological: No focal deficits. Strength and sensation are grossly intact. - Labs CBC & Chem 7: 06/12/20 05:21 06/12/20 05:21 Labs: Abnormal Lab Results - Last 24 Hours (Table) 06/12/20 06/12/20 06/12/20 Range/Units 05:21 05:21 05:21 Hgb 12.6 L (13.0-17.5) gm/dL PT 13.2 H (9.0-12.0) sec INR 1.3 H (<1.2) Chloride 108 H (98-107) mmol/L Assessment and Plan Assessment: Assessment and Plan Assessment: #1 AAA with history of endovascular aortic repair with possible type IA endoleak #2 bilateral lower extremity weakness possible secondary to transient spinal cord ischemia versus other neurologic etiology #3 coronary artery disease with history of coronary stenting Plan: Discussed patient with Dr. Guy. Patient is cleared for discharge per vascular surgery. Tentative plan is for patient to return next week for outpatient and no leak repair with Dr. Guy. Will discuss further with Dr. Guy regarding Coumadin and aspirin therapy. Patient was told to tentatively hold 5 days prior to scheduled procedure. Further recommendations to follow. The above dictated assessment and findings were discussed with Dr. Guy. The impression and plan of care have been directed as dictated.
[2020-06-12 12:37] VITALS: BP 109/66; PULSE 67
--- NOTE | 2020-06-12 16:09 | P.DS ---
Providers Date of admission: 06/09/20 13:46 Expected date of discharge: 06/12/20 Attending physician: Oma Spears Consults: 06/09/20 13:46 Consult Physician Urgent Consulting Provider: Eduin Guy Consult Reason/Comments: Type I endoleak Do you want consulting provider notified?: Yes 06/09/20 17:31 Consult Physician Routine Consulting Provider: Jerome Patel Consult Reason/Comments: cad Do you want consulting provider notified?: Yes 06/10/20 11:43 Consult Physician Routine Consulting Provider: Alexander Santana Consult Reason/Comments: LE weakness Do you want consulting provider notified?: Yes Primary care physician: [facility] Hospital Course: Final diagnosis Back pain Endovascular leak of the abdominal aneurysm repair graft Lower limb weakness, transient, improved, rule out possible spinal cord ischemia, transient Coumadin monitoring History of abdominal aortic aneurysm repair History of coronary artery disease Hypertension Hyperlipidemia History of previous endoleak History of head injury History of corneal abrasion History of cholecystectomy History of coronary artery disease, stent history of nicotine dependence Discharge disposition Patient is being discharged in a stable condition with guarded prognosis to home. Patient will follow-up with [facility] in the outpatient setting upon discharge. Patient also instructed to follow-up with Dr. Guy in the outpatient setting as discussed and scheduled. Patient will also be following up with neurology in the outpatient setting. Patient will resume Coumadin and aspirin and a prescription was provided for monitoring of the INR. Patient instructed to hold Coumadin and aspirin 5 days prior to procedure with cardiovascular surgery. Total time taken is greater than 35 minutes. History of present illness This is a 65-year-old male who was recently admitted with leg numbness and weakness and also back pain and was being closely monitored. Patient had a history of an endoleak repair previously with suspected endoleak and was evaluated by cardiovascular surgery patient is currently maintained on Coumadin and aspirin and will resume upon discharge and a prescription was provided for frequent INR monitoring. Patient instructed to hold Coumadin and aspirin 5 days prior to cardiovascular intervention with Dr. Guy which is tentatively scheduled for 06/19/2020. During hospitalization patient was seen and evaluated by neurology and patient will have close follow-up in the outpatient setting with neurology. Patient underwent MRI of the L and T-spine showing a normal MRI of the thoracic spine, some disc bulging in the C5-6 and to a lesser degree C67. L-spine MRI showed mild facet degenerative changes with some ligamentum flavum laxity, some mild foraminimal narrowing be present at the L4-5, and an abdominal aortic aneurysm with stent placement. Patient's lower extremity weakness and numbness has resolved and patient would like to go home and follow- up outpatient as discussed. Currently no reports of chest pain, shortness of breath, or palpitations. Patient is afebrile. No reports of nausea or vomiting and patient is tolerating diet. Patient will be discharged home today. On exam vital signs are stable. Temp is 98.1F, pulse is 67, respirations are 18, blood pressure is 109/66, oxygen saturation is 94% on room air. Cardio S1, S2 are muffled. Respiratory system shows diminished breath sounds at the bases with no wheezing or rhonchi noted. Abdomen is soft and nontender. Nervous system shows no focal deficits. Please refer to medication reconciliation sheet for a list of medications. Patient Condition at Discharge: Stable Plan - Discharge Summary Discharge Rx Participant: No New Discharge Prescriptions: Continue Aspirin 81 mg PO DAILY Warfarin [Coumadin] 2.5 mg PO MOWEFR Warfarin Sodium [Coumadin] 5 mg PO SUTUTHSA lisinopriL [Zestril] 5 mg PO DAILY #0 Changed Metoprolol Tartrate [Lopressor] 25 mg PO DAILY #0 Discharge Medication List Aspirin 81 mg PO DAILY 12/05/15 [History] Warfarin Sodium [Coumadin] 5 mg PO SUTUTHSA 12/15/18 [History] Warfarin [Coumadin] 2.5 mg PO MOWEFR 12/15/18 [History] lisinopriL [Zestril] 5 mg PO DAILY #0 12/16/18 [Rx] Metoprolol Tartrate [Lopressor] 25 mg PO DAILY #0 06/12/20 [Rx] Follow up Appointment(s)/Referral(s): Eduin Guy DO [STAFF PHYSICIAN] - 1 Week (office will call pt to setup out patient surgery repair of AAA Patient to hold ASA and Coumadin FIVE DAYS PRIOR TO PROCEDURE ) Esdras Juárez MD [Medical Doctor] - 1 Week (office will call for appt) [facility] [Primary Care Provider] - 1-2 days (pt to call office to set up appt) Ambulatory/Diagnostic Orders: Prothrombin Time INR [LAB.AMB] Time Frame: 2 Days, Location: None Selected Patient Instructions/Handouts: Heart Healthy Diet (DC), Nonruptured Abdominal Aortic Aneurysm (GEN), Chronic Hypertension (DC) Activity/Diet/Wound Care/Special Instructions: May resume Coumadin and ASA. Hold aspirin and Coumadin 5 days prior to scheduled procedure. Patient was advised of this this morning. Activity Limited until follow-up Follow-up with primary care provider upon discharge Repeat labs in 1-2 days Continue current diet Follow-up with neurology Follow-up with cardiovascular surgery as scheduled Discharge Disposition: HOME SELF-CARE
== END 2020-06-12 15:03 | disposition home or self-care (01) | DRG 315 ==
LOC: EC 09:20 → 3SCARD 13:46
PROVIDERS: ADMIT Hospitalist; ATTEND Hospitalist
DX: T82.330A Leakage of aortic (bifurcation) graft (replacement), initial encounter (principal); J98.11 Atelectasis; Z11.59 Encounter for screening for other viral diseases; M50.222 Other cervical disc displacement at C5-C6 level; I71.4 Abdominal aortic aneurysm, without rupture; I73.9 Peripheral vascular disease, unspecified; R53.1 Weakness; I25.10 Atherosclerotic heart disease of native coronary artery without angina pectoris; I10 Essential (primary) hypertension; E78.5 Hyperlipidemia, unspecified; M51.36 Other intervertebral disc degeneration, lumbar region; I83.90 Asymptomatic varicose veins of unspecified lower extremity; H93.13 Tinnitus, bilateral; F17.210 Nicotine dependence, cigarettes, uncomplicated; F41.9 Anxiety disorder, unspecified; Y83.2 Surgical operation with anastomosis, bypass or graft as the cause of abnormal reaction of the patient, or of later complication, without mention of misadventure at the time of the procedure; Z71.6 Tobacco abuse counseling; I25.2 Old myocardial infarction; Z79.82 Long term (current) use of aspirin; Z79.899 Other long term (current) drug therapy; Z79.01 Long term (current) use of anticoagulants; Z87.828 Personal history of other (healed) physical injury and trauma; Z90.49 Acquired absence of other specified parts of digestive tract; Z95.5 Presence of coronary angioplasty implant and graft; Z82.49 Family history of ischemic heart disease and other diseases of the circulatory system; Z80.8 Family history of malignant neoplasm of other organs or systems
CPT/HCPCS: 36415; 70450; 71045; 71046; 71275; 72131; 72157; 72158; 74176; 75635; 80048; 80053; 83735; 83880; 84484; 85025; 85610; 85730; 93005; 99285

== ENCOUNTER 2020-06-25 13:46 | Emergency (ER) | payer OTHER, MEDICARE ==
[2020-06-25 13:58] VITALS: RESP 18; TEMP 98
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
--- NOTE | 2020-06-25 15:02 | US ---
EXAMINATION TYPE: US venous doppler duplex LE LT DATE OF EXAM: 06/25/2020 2:55 PM COMPARISON: NONE CLINICAL HISTORY: Swelling. LEFT leg edema, AAA repair 06/21/20, patient on blood thinner SIDE PERFORMED: Left TECHNIQUE: The lower extremity deep venous system is examined utilizing real time linear array sonog catarina with graded compression, doppler sonography and color-flow sonography. VESSELS IMAGED: External Iliac Vein (EIV) Common Femoral Vein Deep Femoral Vein Greater Saphenous Vein * Femoral Vein Popliteal Vein Small Saphenous Vein * Proximal Calf Veins (* superficial vessels) Left Leg: No evidence of DVT as visualize. There is normal flow, compressibility, vascular waveform s. IMPRESSION: No DVT of the left lower extremity.
[2020-06-25 15:15] VITALS: BP 140/90; PULSE 68
== END 2020-06-25 15:15 | disposition home or self-care (01) ==
LOC: EC 13:46
DX: R22.42 Localized swelling, mass and lump, left lower limb (principal); F17.200 Nicotine dependence, unspecified, uncomplicated; I25.10 Atherosclerotic heart disease of native coronary artery without angina pectoris; I25.2 Old myocardial infarction; Z79.82 Long term (current) use of aspirin; Z79.01 Long term (current) use of anticoagulants; Z88.8 Allergy status to other drugs, medicaments and biological substances; Z95.5 Presence of coronary angioplasty implant and graft
CPT/HCPCS: 99283

== ENCOUNTER → 2020-08-06 | Outpatient (CLI) | payer OTHER ==
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
== END | disposition home or self-care (01) ==
LOC: RADCTMAIN 11:25
PROVIDERS: ATTEND Surgery
DX: I71.4 Abdominal aortic aneurysm, without rupture (principal)
CPT/HCPCS: 74174; Q9967

== ENCOUNTER 2022-07-11 16:45 | Emergency (ER) | payer OTHER ==
[2022-07-11 17:22] VITALS: BP 129/75; PULSE 82; RESP 20; TEMP 97.8
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
== END 2022-07-11 18:40 | disposition home or self-care (01) ==
LOC: EC 16:45
DX: M54.6 Pain in thoracic spine (principal); I25.10 Atherosclerotic heart disease of native coronary artery without angina pectoris; E78.5 Hyperlipidemia, unspecified; I10 Essential (primary) hypertension; I25.2 Old myocardial infarction; F17.200 Nicotine dependence, unspecified, uncomplicated; Z79.82 Long term (current) use of aspirin; Z79.01 Long term (current) use of anticoagulants; Z88.8 Allergy status to other drugs, medicaments and biological substances; V89.2XXA Person injured in unspecified motor-vehicle accident, traffic, initial encounter
CPT/HCPCS: 99283